=== PATIENT | female | born 1970 | race Two or more races ===

== ENCOUNTER 2022-04-22 19:09 | Inpatient (IN) | payer OTHER ==
[2022-04-22 20:34] VITALS: BMI 22.6
[2022-04-22] MEDS ORDERED: ACETAMINOPHEN 1000 MG/100 ML BAG IVPB ONE (21:02)
[2022-04-22] MEDS ORDERED: SODIUM CHLORIDE 0.9% 500 ML INFUS.BAG IV ONE (21:02)
[2022-04-22] MEDS ORDERED: ACETAMINOPHEN INJECTION 100 ML IVPB ONE (21:04)
[2022-04-22 22:02] LABS: BASO % 0.7 % (0-2.0); EOS % 1.6 % (0-4.5); HEMATOCRIT 40.8 % (32.4-45.2); HEMOGLOBIN 13.6 GM/dL (10.7-15.3); LYMPH % 36.9 % (8-40); MCH 28.4 pg (25.7-33.7); MCHC 33.3 g/dl (32.0-36.0); MEAN CELL VOLUME 85.4 fl (80-96); MEAN PLT VOLUME 6.6 fl (7.5-11.1); MONO % 7.5 % (3.8-10.2); NEUT % 53.3 % (42.8-82.8); PLATELET COUNT 268 10^3/uL (134-434); RBC 4.77 M/mm3 (3.60-5.2); RDW 14.2 % (11.6-15.6); WHITE BLOOD COUNT 5.9 K/mm3 (4.0-10.0)
[2022-04-22 22:17] LABS: ALBUMIN 3.3 g/dl (3.4-5.0); BLOOD UREA NITROGEN 18.8 mg/dL (7-18); MAGNESIUM 1.8 mg/dL (1.8-2.4)
[2022-04-22 22:20] LABS: CREATININE 0.9 mg/dL (0.55-1.3)
[2022-04-22 22:22] LABS: BILIRUBIN,TOTAL 0.4 mg/dL (0.2-1); TOT PROT 7.1 g/dl (6.4-8.2)
[2022-04-23 03:50] LABS: EPI CELLS 2 /uL (0-25.1); HYALINE CASTS 0 /uL (0-3.1); PH,URINE 6.5 (5.0-8.0); URINE APPEARANCE CLEAR; URINE BACTERIA 33 /uL (0-1359); URINE BILIRUBIN NEGATIVE (NEGATIVE); URINE COLOR YELLOW; URINE GLUCOSE (UA) NEGATIVE (NEGATIVE); URINE KETONE NEGATIVE (NEGATIVE); URINE LEUK ESTERASE NEGATIVE (NEGATIVE); URINE NITRITE NEGATIVE (NEGATIVE); URINE PROTEIN NEGATIVE (NEGATIVE); URINE RBC 199 /uL (0-23.9); URINE UROBILINOGEN 0.2 mg/dL (0.2-1.0); URINE WBC 4 /uL (0-25.8)
[2022-04-23] MEDS ORDERED: LORazepam 1 MG TABLET PO PRN (04:00)
[2022-04-23] MEDS ORDERED: FOLIC ACID INJECTION - 1 MG, THIAMINE HCL 100 MG, MULTIVIT INJECTION ADULT 10 ML in SOD... IVPB ONE (04:07)
[2022-04-23] MEDS ORDERED: MAGNESIUM 2GM/50ML STERILE WATER IVPB IVPB ONE (04:30)
[2022-04-23] MEDS ORDERED: PIPERACILLIN/TAZOB 3.375 GM 3.375 GM/50 ML BAG IVPB ONE ×3 (04:37→15:07)
[2022-04-23] MEDS ORDERED: MAGNESIUM SULFATE IN WATER 2 GM/50 ML IVPB IVPB ONE (04:37)
[2022-04-23] MEDS ORDERED: VALPROATE SODIUM 250 MG/5 ML UNIT DOSE CUP PO ONE (04:44)
[2022-04-23] MEDS ORDERED: DIVALPROEX SODIUM 250 MG TABLET E.C. PO ONE (04:46)
[2022-04-23] MEDS ORDERED: LORazepam 1 MG TABLET ONE ×3 (04:48→17:43)
[2022-04-23] MEDS: LORazepam 1 MG TABLET PO SCH ×3 (05:01→17:46)
[2022-04-23] MEDS: PIPERACILLIN/TAZOB 3.375 GM 3.375 GM in DEXTROSE 5%-WATER - 50 ML IVPB SCH ×4 (05:23→22:28)
[2022-04-23 06:05] LABS: URINE BARBITURATES NEGATIVE (NEGATIVE)
[2022-04-23 06:06] LABS: METHADONE, UR NEGATIVE (NEGATIVE); OPIATES, URI NEGATIVE (NEGATIVE)
[2022-04-23 06:20] LABS: COCAINE, UR POSITIVE (NEGATIVE); PHENCYCLIDINE,URINE NEGATIVE (NEGATIVE); URINE AMPHETAMINES NEGATIVE (NEGATIVE); URINE BENZODIAZEPINES NEGATIVE (NEGATIVE)
[2022-04-23 06:33] LABS: BASO % 0.9 % (0-2.0); EOS % 0.6 % (0-4.5); HEMATOCRIT 40.3 % (32.4-45.2); HEMOGLOBIN 13.2 GM/dL (10.7-15.3); LYMPH % 25.3 % (8-40); MCHC 32.7 g/dl (32.0-36.0); MEAN CELL VOLUME 85.5 fl (80-96); MEAN PLT VOLUME 8.5 fl (7.5-11.1); MONO % 10.2 % (3.8-10.2); PLATELET COUNT 286 10^3/uL (134-434); RBC 4.71 M/mm3 (3.60-5.2); RDW 14.1 % (11.6-15.6); WHITE BLOOD COUNT 6.3 K/mm3 (4.0-10.0)
[2022-04-23 06:54] LABS: ALBUMIN 3.7 g/dl (3.4-5.0); BLOOD UREA NITROGEN 12.3 mg/dL (7-18); CALCIUM 9.1 mg/dL (8.5-10.1); MAGNESIUM 2.4 mg/dL (1.8-2.4)
[2022-04-23 06:57] LABS: CREATININE 0.7 mg/dL (0.55-1.3); PHOSPHOROUS 3.2 mg/dL (2.5-4.9)
[2022-04-23 06:59] LABS: BILIRUBIN,TOTAL 0.6 mg/dL (0.2-1); TOT PROT 8.2 g/dl (6.4-8.2)
[2022-04-23] MEDS ORDERED: THIAMINE HCL 100 MG TABLET (FP) ONE (10:51)
[2022-04-23] MEDS ORDERED: ENOXAPARIN NA (PORCINE) 40 MG/0.4 ML DISP.SYRIN SQ ONE (10:51)
[2022-04-23] MEDS ORDERED: FOLIC ACID 1 MG TABLET (FP) ONE (10:51)
[2022-04-23] MEDS ORDERED: NICOTINE 21 MG/24 HOURS TOPICAL PATCH ONE (10:52)
[2022-04-23] MEDS: FOLIC ACID 1 MG TABLET (FP) PO SCH (10:58)
[2022-04-23] MEDS: ENOXAPARIN NA (PORCINE) 40 MG/0.4 ML DISP.SYRIN SQ SCH (10:59)
[2022-04-23] MEDS: THIAMINE HCL 100 MG TABLET (FP) PO SCH (10:59)
[2022-04-23] MEDS: NICOTINE 21 MG/24 HOURS TOPICAL PATCH TD SCH (11:12)
[2022-04-23 11:46] LABS: LIPASE 110 U/L (73-393)
[2022-04-23 12:11] LABS: SODIUM 144 mmol/L (136-145)
[2022-04-23] MEDS ORDERED: HALOPERIDOL LACTATE 5 MG/ML IM ONE (16:51)
[2022-04-23] MEDS ORDERED: THIAMINE HCL 200 MG/2 ML VIAL IVPB ONE (17:47)
[2022-04-23] MEDS: amLODIPine BESYLATE 10 MG TABLET (FP) PO SCH (17:55)
[2022-04-23] MEDS ORDERED: QUEtiapine FUMARATE 100 MG TABLET (FP) ONE (17:56)
[2022-04-23] MEDS ORDERED: amLODIPine BESYLATE 10 MG TABLET (FP) ONE (17:56)
[2022-04-23] MEDS: QUEtiapine FUMARATE 300 MG TABLET PO SCH (18:00)
[2022-04-23] MEDS ORDERED: THIAMINE HCL 200 MG/2 ML VIAL ONE (18:26)
[2022-04-23] MEDS ORDERED: HALOPERIDOL LACTATE 5 MG/ML ONE (20:37)
[2022-04-23] MEDS ORDERED: PIPERACILLIN/TAZOBACTAM 3.375 GM VIAL IVPB ONE (21:18)
[2022-04-23] MEDS ORDERED: DEXTROSE 5%-WATER - 50 ML IVPB ONE (21:18)
[2022-04-24] MEDS: DIVALPROEX SODIUM 500 MG TABLET E.C. PO SCH ×3 (01:30→23:19)
[2022-04-24] MEDS: SERTRALINE HCL 50 MG TABLET (FP) PO SCH ×2 (01:30→23:19)
[2022-04-24] MEDS: LORazepam 1 MG TABLET PO SCH ×5 (01:30→23:18)
[2022-04-24] MEDS ORDERED: PIPERACILLIN/TAZOB 3.375 GM 3.375 GM in DEXTROSE 5%-WATER - 50 ML IVPB SCH (03:00)
[2022-04-24 07:06] LABS: BASO % 0.4 % (0-2.0); EOS % 1.9 % (0-4.5); HEMATOCRIT 37.5 % (32.4-45.2); HEMOGLOBIN 12.7 GM/dL (10.7-15.3); LYMPH % 47.9 % (8-40); MCH 28.6 pg (25.7-33.7); MCHC 33.7 g/dl (32.0-36.0); MEAN PLT VOLUME 6.2 fl (7.5-11.1); MONO % 7.5 % (3.8-10.2); NEUT % 42.3 % (42.8-82.8); PLATELET COUNT 279 10^3/uL (134-434); RBC 4.42 M/mm3 (3.60-5.2); RDW 14.3 % (11.6-15.6); WHITE BLOOD COUNT 4.2 K/mm3 (4.0-10.0)
[2022-04-24 07:31] LABS: CALCIUM 8.5 mg/dL (8.5-10.1)
[2022-04-24 07:32] LABS: BLOOD UREA NITROGEN 14.3 mg/dL (7-18); MAGNESIUM 1.9 mg/dL (1.8-2.4)
[2022-04-24 07:34] LABS: CREATININE 0.8 mg/dL (0.55-1.3); PHOSPHOROUS 3.6 mg/dL (2.5-4.9)
[2022-04-24 07:36] LABS: BILIRUBIN,TOTAL 0.2 mg/dL (0.2-1)
[2022-04-24 07:44] LABS: ALBUMIN 2.6 g/dl (3.4-5.0); TOT PROT 5.7 g/dl (6.4-8.2)
[2022-04-24] MEDS ORDERED: QUEtiapine FUMARATE 100 MG TABLET (FP) ONE (09:50)
[2022-04-24] MEDS: QUEtiapine FUMARATE 300 MG TABLET PO SCH (09:54)
[2022-04-24] MEDS: FOLIC ACID 1 MG TABLET (FP) PO SCH (09:56)
[2022-04-24] MEDS: amLODIPine BESYLATE 10 MG TABLET (FP) PO SCH (09:56)
[2022-04-24] MEDS: THIAMINE HCL 100 MG TABLET (FP) PO SCH (09:56)
[2022-04-24] MEDS: ENOXAPARIN NA (PORCINE) 40 MG/0.4 ML DISP.SYRIN SQ SCH (10:00)
[2022-04-24] MEDS: NICOTINE 21 MG/24 HOURS TOPICAL PATCH TD SCH (10:01)
[2022-04-25] MEDS ORDERED: LORazepam 0.5 MG TABLET PO PRN
[2022-04-25] MEDS: LORazepam 0.5 MG TABLET PO SCH ×3 (06:17→14:53)
[2022-04-25 08:08] LABS: BASO % 0.4 % (0-2.0); EOS % 1.6 % (0-4.5); HEMATOCRIT 38.7 % (32.4-45.2); HEMOGLOBIN 12.8 GM/dL (10.7-15.3); LYMPH % 52.5 % (8-40); MCH 28.2 pg (25.7-33.7); MEAN CELL VOLUME 85.5 fl (80-96); MEAN PLT VOLUME 6.6 fl (7.5-11.1); MONO % 6.2 % (3.8-10.2); NEUT % 39.3 % (42.8-82.8); PLATELET COUNT 281 10^3/uL (134-434); RBC 4.53 M/mm3 (3.60-5.2); WHITE BLOOD COUNT 3.6 K/mm3 (4.0-10.0)
[2022-04-25 08:39] LABS: ALBUMIN 2.5 g/dl (3.4-5.0); BLOOD UREA NITROGEN 16.9 mg/dL (7-18); CALCIUM 8.9 mg/dL (8.5-10.1)
[2022-04-25 08:42] LABS: CREATININE 0.7 mg/dL (0.55-1.3); PHOSPHOROUS 4.3 mg/dL (2.5-4.9)
[2022-04-25 08:44] LABS: BILIRUBIN,TOTAL 0.3 mg/dL (0.2-1); TOT PROT 5.5 g/dl (6.4-8.2)
[2022-04-25] MEDS ORDERED: QUEtiapine FUMARATE 100 MG TABLET (FP) ONE (09:28)
[2022-04-25 09:58] VITALS: BP 99/54; PULSE 66; TEMP 98.7
[2022-04-25] MEDS: FOLIC ACID 1 MG TABLET (FP) PO SCH (10:01)
[2022-04-25] MEDS: THIAMINE HCL 100 MG TABLET (FP) PO SCH (10:01)
[2022-04-25] MEDS: ENOXAPARIN NA (PORCINE) 40 MG/0.4 ML DISP.SYRIN SQ SCH (10:02)
[2022-04-25] MEDS: DIVALPROEX SODIUM 500 MG TABLET E.C. PO SCH (10:02)
[2022-04-25] MEDS: amLODIPine BESYLATE 10 MG TABLET (FP) PO SCH (10:03)
[2022-04-25] MEDS: NICOTINE 21 MG/24 HOURS TOPICAL PATCH TD SCH ×2 (10:03→10:16)
[2022-04-25] MEDS: QUEtiapine FUMARATE 300 MG TABLET PO SCH (10:04)
[2022-04-26] MEDS ORDERED: LORazepam 0.5 MG TABLET PO ONE (05:00)
== END 2022-04-25 16:36 | disposition left against medical advice (07) | DRG 770 ==
LOC: JER 19:09 → JERBED 04-23 01:27 → OBSVTOIN 04-23 03:40 → J4W 04-23 20:57
PROVIDERS: ADMIT Internal Medicine; ATTEND Internal Medicine
DX: F10.230 Alcohol dependence with withdrawal, uncomplicated (principal); G40.909 Epilepsy, unspecified, not intractable, without status epilepticus; F31.9 Bipolar disorder, unspecified; F14.10 Cocaine abuse, uncomplicated; S06.0X0A Concussion without loss of consciousness, initial encounter; F11.10 Opioid abuse, uncomplicated; R42 Dizziness and giddiness; I10 Essential (primary) hypertension; Z91.51 Personal history of suicidal behavior; R50.9 Fever, unspecified; R79.89 Other specified abnormal findings of blood chemistry; R94.31 Abnormal electrocardiogram [ECG] [EKG]; R74.01 Elevation of levels of liver transaminase levels; L03.211 Cellulitis of face; W19.XXXA Unspecified fall, initial encounter; Y93.89 Activity, other specified; Y92.89 Other specified places as the place of occurrence of the external cause; Y99.8 Other external cause status; Z53.29 Procedure and treatment not carried out because of patient's decision for other reasons; Z59.00 Homelessness unspecified
CPT/HCPCS: 0241U-QW; 36415; 70450-TC; 70486-TC; 71046-TC-FY; 72125-TC; 80053; 80164; 80307; 81003; 82962; 83690; 83735; 84100; 84295; 84443; 84484; 84703; 85025; 86704; 86803; 87040; 87086; 87340; 87517; 93005; 93010; 99285-25; G0378